=== PATIENT | female | born 1970 | race Caucasian/White ===

== ENCOUNTER 2019-04-30 15:20 | Emergency (ER) | payer SELFPAY ==
[~2019-04-30] VITALS: Ht 167.6 cm; Wt 108.9 kg
[2019-04-30] MEDS ORDERED: IV NORMAL SALINE 1000ML BAG 1,000 ML IV SCH (16:12)
--- NOTE | 2019-04-30 16:16 | EKG ---
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
--- NOTE | 2019-04-30 16:19 | PHYS DOC ---
Past Medical History Past Medical History: No Pertinent History (JOVANA QIU APRN) Past Surgical History: , Tubal ligation (JOVANA QIU APRN) Alcohol Use: Occasionally Drug Use: None (JOVANA QIU APRN) Adult General Chief Complaint Chief Complaint: ABDOMINAL PAIN HPI HPI She is a 48-year-old female presents for evaluation of epigastric pain radiating in the chest. Onset this morning roughly 2 AM. Woke with the pain. She had a migraine yesterday. Resolved after Tylenol. Went to bed feeling fine. Ate mac & cheese and toast yesterday. Woke at 2 AM with the above symptoms. She reports nausea with vomiting, loose/oily stools. She denies dyspnea. No exertional component to this pain. No hematemesis. No melena or hematochezia. No dysuria. No lower abdominal pain. No fever. No chills. Cough or congestion. No known history of gallbladder disease. No headache today. No additional concerns at this time. (JOVANA QIU APRN) Review of Systems Review of Systems Constitutional: Denies fever or chills [] Eyes: Denies change in visual acuity, redness, or eye pain [] HENT: Denies nasal congestion or sore throat [] Respiratory: Denies cough or shortness of breath [] Cardiovascular: No additional information not addressed in HPI [] GI: As above : Denies dysuria or hematuria [] Musculoskeletal: Denies back pain or joint pain [] Integument: Denies rash or skin lesions [] Neurologic: Denies headache, focal weakness or sensory changes [] Endocrine: Denies polyuria or polydipsia [] All other systems were reviewed and found to be within normal limits, except as documented in this note. (JOVANA QIU APRN) Current Medications Current Medications Current Medications Medications (Trade) Dose Ordered Sig/Fortino Start Time Stop Time Status Last Admin Dose Admin Dicyclomine HCl (Bentyl) 10 mg 1X ONCE 04/30/19 18:15 04/30/19 18:16 DC 04/30/19 18:20 10 MG Info (CONTRAST GIVEN -- Rx MONITORING) 1 each PRN DAILY PRN 04/30/19 18:15 04/30/19 20:22 DC Iohexol (Omnipaque 300 Mg/ml) 75 ml 1X ONCE 04/30/19 18:15 04/30/19 18:16 DC 04/30/19 18:15 75 ML Ketorolac Tromethamine (Toradol 30mg Vial) 30 mg 1X ONCE 04/30/19 18:15 04/30/19 18:16 DC 04/30/19 18:20 30 MG Multi-Ingredient Mouthwash/Gargle (Gi Cocktail) 20 ml 1X ONCE 04/30/19 17:15 04/30/19 17:16 DC 04/30/19 17:40 20 ML Sodium Chloride 1,000 ml @ 1,000 mls/hr Q1H 04/30/19 16:12 04/30/19 17:11 DC 04/30/19 16:12 1,000 MLS/HR (REFUGIO OBREGON APRN) Allergies Allergies Allergies Coded Allergies Type Severity Reaction Last Updated Verified meperidine Allergy Intermediate 04/30/19 Yes morphine Allergy Intermediate 04/30/19 Yes (REFUGIO OBREGON APRN) Physical Exam Physical Exam Constitutional: Well developed, well nourished, no acute distress, non-toxic appearance. [] HENT: Normocephalic, atraumatic, bilateral external ears normal, oropharynx moist, no oral exudates, nose normal. [] Eyes: PERRLA, EOMI, conjunctiva normal, no discharge. [] Neck: Normal range of motion, no tenderness, supple, no stridor. [] Cardiovascular:Heart rate regular rhythm, no murmur [] Lungs & Thorax: Bilateral breath sounds clear to auscultation [] Abdomen: Bowel sounds normal, soft, no tenderness, no masses, no pulsatile masses. [] Skin: Warm, dry, no erythema, no rash. [] Back: No tenderness, no CVA tenderness. [] Extremities: No tenderness, no cyanosis, no clubbing, ROM intact, no edema. [] Neurologic: Alert and oriented X 3, normal motor function, normal sensory function, no focal deficits noted. [] Psychologic: Affect normal, judgement normal, mood normal. [] (JOVANA QIU APRN) Current Patient Data Vital Signs Vital Signs Date Time Temp Pulse Resp B/P (MAP) Pulse Ox O2 Delivery O2 Flow Rate FiO2 04/30/19 19:45 75 162/82 (108) 98 Room Air 04/30/19 16:00 98.7 12 98.7 (REFUGIO OBREGON APRN) Lab Values Laboratory Tests Test 04/30/19 15:30 04/30/19 16:01 04/30/19 16:03 Urine Collection Type Unknown Urine Color Yellow Urine Clarity Clear Urine pH 6.0 Urine Specific [place] >=1.030 Urine Protein Negative mg/dL (NEG-TRACE) Urine Glucose (UA) Negative mg/dL (NEG) Urine Ketones (Stick) >=80 mg/dL (NEG) Urine Blood Negative (NEG) Urine Nitrite Negative (NEG) Urine Bilirubin Negative (NEG) Urine Urobilinogen Dipstick 0.2 mg/dL (0.2 mg/dL) Urine Leukocyte Esterase Negative (NEG) Urine RBC 0 /HPF (0-2) Urine WBC 1-4 /HPF (0-4) Urine Squamous Epithelial Cells Many /LPF Urine Bacteria Many /HPF (0-FEW) Urine Mucus Marked /LPF POC Urine HCG, Qualitative Hcg negative (Negative) White Blood Count 7.5 x10^3/uL (4.0-11.0) Red Blood Count 4.31 x10^6/uL (3.50-5.40) Hemoglobin 12.4 g/dL (12.0-15.5) Hematocrit 37.6 % (36.0-47.0) Mean Corpuscular Volume 87 fL (79-100) Mean Corpuscular Hemoglobin 29 pg (25-35) Mean Corpuscular Hemoglobin Concent 33 g/dL (31-37) Red Cell Distribution Width 15.0 % (11.5-14.5) H Platelet Count 403 x10^3/uL (140-400) H Neutrophils (%) (Auto) 71 % (31-73) Lymphocytes (%) (Auto) 16 % (24-48) L Monocytes (%) (Auto) 11 % (0-9) H Eosinophils (%) (Auto) 1 % (0-3) Basophils (%) (Auto) 1 % (0-3) Neutrophils # (Auto) 5.3 x10^3/uL (1.8-7.7) Lymphocytes # (Auto) 1.2 x10^3/uL (1.0-4.8) Monocytes # (Auto) 0.8 x10^3/uL (0.0-1.1) Eosinophils # (Auto) 0.1 x10^3/uL (0.0-0.7) Basophils # (Auto) 0.1 x10^3/uL (0.0-0.2) Sodium Level 138 mmol/L (136-145) Potassium Level 3.6 mmol/L (3.5-5.1) Chloride Level 103 mmol/L (98-107) Carbon Dioxide Level 23 mmol/L (21-32) Anion Gap 12 (6-14) Blood Urea Nitrogen 9 mg/dL (7-20) Creatinine 0.6 mg/dL (0.6-1.0) Estimated GFR (Cockcroft-Gault) 107.2 Glucose Level 94 mg/dL (70-99) Calcium Level 8.8 mg/dL (8.5-10.1) Total Bilirubin 0.6 mg/dL (0.2-1.0) Direct Bilirubin 0.1 mg/dL (0.0-0.2) Aspartate Amino Transferase (AST) 15 U/L (15-37) Alanine Aminotransferase (ALT) 15 U/L (14-59) Alkaline Phosphatase 63 U/L (46-116) Troponin I Quantitative < 0.017 ng/mL (0.000-0.055) Total Protein 7.5 g/dL (6.4-8.2) Albumin 3.6 g/dL (3.4-5.0) Lipase 50 U/L (73-393) L Serum Test, Qualitative Negative (NEG) Laboratory Tests 04/30/19 16:03 Laboratory Tests 04/30/19 16:03 (REFUGIO OBREGON APRN) EKG EKG [] (JOVANA QIU APRN) Radiology/Procedures Radiology/Procedures [] (JOVANA QIU APRN) Radiology/Procedures PROCEDURE: CT ABD PELV W/ IV CONTRST ONLY PQRS Compliance statement: One or more of the following individualized dose reduction techniques were utilized for this examination: 1. Automated exposure control. 2. Adjustment of the mA and/or kV according to patient size. 3. Use of iterative reconstruction technique. Indication: Abdominal pain. TECHNIQUE: CT abdomen and pelvis with IV contrast with multiplanar reformats. COMPARISON: None FINDINGS: Heart is normal in size. No pericardial or pleural effusion. 4 mm nodule in the right lower lobe (series 2 image 7). Liver, spleen, gallbladder, pancreas, adrenals and kidneys are within normal limits. No enlarged retroperitoneal or pelvic adenopathy. No free pelvic fluid or ascites. Uterus is present. Urinary bladder demonstrates no radiopaque stone. No pneumoperitoneum. No suspicious bony lesion. Circumferential wall thickening is seen of the distal stomach and gastric antrum. IMPRESSION: Circumferential wall thickening of the gastric antrum may be secondary to gastritis. Clinically correlate with symptoms. Otherwise no acute findings. Right lower lobe nodule (4 mm). Follow-up CT chest in 4-6 months recommended. (REFUGIO OBREGON BUSHEL WORKER) Course & Med Decision Making Course & Med Decision Making Pertinent Labs and Imaging studies reviewed. (See chart for details) []labs reassuring. US fails to show acute pathology. at 1750 patient states "pain has moved down"- no longer radiating into chest. remains tender in epigastric region. NSR on monitor, no ectopy. no relief with GI cocktail. reports sensitivity to opiates- requests pain medication. will order bentyl and toradol. surgical pathology felt to be unlikely. CT added. 1899- awaiting result. no abd pain after meds. nontender. 1929- case discussed with ORLANDO Duff. if CT is nl will discharge with Bentyl. (JOVANA QIU BUSHEL WORKER) Course & Med Decision Making CT is concerning for gastritis. Incidental finding of a right lower lobe nodule of patient's lung. Prescriptions written for Bentyl, and Zofran. Patient was instructed to follow-up with her primary care doctor for repeat evaluation of the nodule finding in 4 to 6 months Recommended clear fluids for the next 24 hours, then advance to bland foods such as bananas, rice, applesauce, and dry toast. Also recommended pcvi-ygu-athrfcu antacid such as famotidine, or Prevacid. Follow-up with your primary care doctor in the next 1-2 days. Return to the emergency room if your symptoms worsen. Pt verbalized an understanding of home care, medications, follow-up, and return to ED instructions and was in agreement with the plan of care. (REFUGIO OBREGON BUSHEL WORKER) Dragon Disclaimer Dragon Disclaimer This electronic medical record was generated, in whole or in part, using a voice recognition dictation system. (JOVANA QIU APRN) Departure Departure Impression: Primary Impression: Abdominal pain Additional Impression: Gastritis Disposition: 01 HOME, SELF-CARE Condition: STABLE Referrals: NO PCP (PCP) Patient Instructions: Abdominal Pain (Nonspecific), Gastritis, Adult, E asy-to-Read Additional Instructions: Fill prescriptions and use them as directed. Recommend clear fluids for the next 24 hours. You may want to take an zwbb-yff-eiijnoo antacid such as famotidine, or Prevacid. Then you may advance to bland foods such as bananas, rice, applesa uce, and dry toast. There was an abnormal finding on your CT scan of a nodule on the R lower lobe of your lung, recommend follow up CT in 4-6 months. Follow-up with your primary care doctor in the next 1-2 days. Return to the emergency room if your symptoms worsen. Scripts Ondansetron Hcl (ONDANSETRON HCL) 4 Mg Tablet 1 TAB PO PRN Q6HRS PRN for NAUSEA/VOMITING for 3 Days, #10 TAB 0 Refills Prov: REFUGIO OBREGON APRN 04/30/19 Dicyclomine Hcl (DICYCLOMINE HCL) 10 Mg Capsule 1 CAP PO TID PRN for PAIN for 10 Days, #30 CAP 0 Refills Prov: REFUGIO OBREGON APRN 04/30/19 Problem Qualifiers Primary Impression: Abdominal pain Abdominal location: unspecified location Qualified Codes: R10.9 - Unspecified abdominal pain Additional Impression: Gastritis Gastritis type: unspecified gastritis Chronicity: acute Gastritis bleeding: without bleeding Qualified Codes: K29.00 - Acute gastritis without bleeding JOVANA QIU APRN Apr 30, 2019 16:19 REFUGIO OBREGON APRN Apr 30, 2019 19:46
[2019-04-30 16:21] LABS: BASO # 0.1 x10^3/uL (0.0-0.2); BASO % 1 % (0-3); EOS # 0.1 x10^3/uL (0.0-0.7); EOS % 1 % (0-3); HEMATOCRIT 37.6 % (36.0-47.0); HEMOGLOBIN 12.4 g/dL (12.0-15.5); LYMPH # 1.2 x10^3/uL (1.0-4.8); LYMPH % 16 % (24-48); MEAN CORPUSCULAR HEMOGLOBIN 29 pg (25-35); MEAN CORPUSCULAR HGB CONC 33 g/dL (31-37); MEAN CORPUSCULAR VOLUME 87 fL (79-100); MONO # 0.8 x10^3/uL (0.0-1.1); MONO % 11 % (0-9); NEUT # 5.3 x10^3/uL (1.8-7.7); NEUT % 71 % (31-73); PLATELET COUNT 403 x10^3/uL (140-400); RED BLOOD COUNT 4.31 x10^6/uL (3.50-5.40); WHITE BLOOD COUNT 7.5 x10^3/uL (4.0-11.0)
[2019-04-30 16:22] LABS: BILIRUBIN,URINE NEGATIVE (NEG); CLARITY,URINE CLEAR; COLOR,URINE YELLOW; NITRITE,URINE NEGATIVE (NEG); PROTEIN,URINE NEGATIVE (NEG-TRACE); UROBILINOGEN,URINE 0.2 mg/dL (0.2 mg/dL)
[2019-04-30 16:26] LABS: BACTERIA,URINE MANY /HPF (0-FEW); SQUAMOUS EPITHELIAL CELL,UR MANY /LPF
[2019-04-30 16:27] LABS: RBC,URINE 0 /HPF (0-2)
[2019-04-30 16:33] LABS: PREG TEST PT QUAL NEGATIVE (NEG)
[2019-04-30 16:54] LABS: CALCIUM 8.8 mg/dL (8.5-10.1); CREATININE 0.6 mg/dL (0.6-1.0); GFR 107.2; POTASSIUM 3.6 mmol/L (3.5-5.1)
--- NOTE | 2019-04-30 16:54 | RAD ---
ABDOMEN LTD History: Epigastric pain. Comparison: None. Technique: Transabdominal ultrasound images are obtained of the right upper quadrant. Findings: Visualized pancreas is normal seen due to overlying bowel gas. Liver is normal in echogenicity. Right hepatic lobe measures 14.0 cm. Portal flow is hepatopedal. Gallbladder has an unremarkable appearance. Common bile duct measures 4.5 mm in diameter. The right kidney measures 11.2 x 4.6 x 5.3 cm in length and is without evidence of obstruction or stone. Patent IVC. IMPRESSION: 1. Unremarkable right upper quadrant ultrasound. Electronically signed by: Jerman Mims DO (04/30/2019 4:52 PM) [id number]
[2019-04-30 17:02] LABS: ALBUMIN 3.6 g/dL (3.4-5.0); DIRECT BILIRUBIN 0.1 mg/dL (0.0-0.2); TOTAL BILIRUBIN 0.6 mg/dL (0.2-1.0); TOTAL PROTEIN 7.5 g/dL (6.4-8.2)
[2019-04-30] MEDS ORDERED: LIDO:MAALOX 1:1 20 ML SINGLE DOSE. SWSW ONE (17:15)
[2019-04-30] MEDS ORDERED: CONTRAST GIVEN. MC PRN (18:15)
[2019-04-30] MEDS ORDERED: IOHEXOL 300 MG/ML 100ML VIAL. IV ONE (18:15)
[2019-04-30] MEDS ORDERED: DICYCLOMINE 20 MG/2 ML AMPUL. IM ONE (18:15)
[2019-04-30] MEDS ORDERED: KETOROLAC 30 MG/ML VIAL. IVP ONE (18:15)
--- NOTE | 2019-04-30 19:39 | RAD ---
PQRS Compliance statement: One or more of the following individualized dose reduction techniques were utilized for this examination: 1. Automated exposure control. 2. Adjustment of the mA and/or kV according to patient size. 3. Use of iterative reconstruction technique. Indication: Abdominal pain. TECHNIQUE: CT abdomen and pelvis with IV contrast with multiplanar reformats. COMPARISON: None FINDINGS: Heart is normal in size. No pericardial or pleural effusion. 4 mm nodule in the right lower lobe (series 2 image 7). Liver, spleen, gallbladder, pancreas, adrenals and kidneys are within normal limits. No enlarged retroperitoneal or pelvic adenopathy. No free pelvic fluid or ascites. Uterus is present. Urinary bladder demonstrates no radiopaque stone. No pneumoperitoneum. No suspicious bony lesion. Circumferential wall thickening is seen of the distal stomach and gastric antrum. IMPRESSION: Circumferential wall thickening of the gastric antrum may be secondary to gastritis. Clinically correlate with symptoms. Otherwise no acute findings. Right lower lobe nodule (4 mm). Follow-up CT chest in 4-6 months recommended. Electronically signed by: Suhail Simmons DO (04/30/2019 7:36 PM) [facility]
[2019-04-30 19:45] VITALS: BP 162/82
[2019-04-30] MEDS ORDERED: ONDA4TAB11 PO (20:14)
[2019-04-30] MEDS ORDERED: DICY10CA3 PO (20:14)
== END 2019-04-30 20:22 | disposition home or self-care (01) ==
LOC: ER 15:20
DX: K29.00 Acute gastritis without bleeding (principal); R10.13 Epigastric pain; R11.2 Nausea with vomiting, unspecified; Z98.890 Other specified postprocedural states; Z88.6 Allergy status to analgesic agent; Z88.5 Allergy status to narcotic agent; Z79.899 Other long term (current) drug therapy; Z98.51 Tubal ligation status
CPT/HCPCS: 36415; 74177; 76705; 80048; 80076; 81001; 81025; 83690; 84484; 84703; 85025; 87086; 93005; 96361; 96372; 96374; 99285; J0500; J1885; J7030; Q9967